=== PATIENT | female | born 1985 | race Caucasian/White ===

== ENCOUNTER 2022-09-15 10:24 | Emergency (ER) | payer MEDICAID ==
[~2022-09-15] VITALS: Ht 170.2 cm; Wt 58.0 kg
[2022-09-15] MEDS ORDERED: diphenhydrAMINE 50 mg/ml inj IM ONE (10:40)
[2022-09-15] MEDS ORDERED: LORazepam 2 mg/ml vial IM ONE (10:40)
[2022-09-15] MEDS ORDERED: haloperidol lactate 5mg/ml inj IM ONE (11:12)
--- NOTE | 2022-09-15 11:29 | NUR ---
Patient refused to allow staff to obtain vital signs.
--- NOTE | 2022-09-15 11:55 | NUR ---
Bilateral legs released from restraints
--- NOTE | 2022-09-15 12:10 | NUR ---
Pt's right arm is no longer restrained
--- NOTE | 2022-09-15 12:25 | NUR ---
Pt is no longer restrained
[2022-09-15 13:11] LABS: BASOPHILS # (AUTO) 0.1 X10'3 (0-0.2); BASOPHILS % (AUTO) 1.4 % (0-1); EOSINOPHILS # (AUTO) 0.1 X10'3 (0-0.9); EOSINOPHILS % (AUTO) 1.4 % (0-6); HEMATOCRIT 37.5 % (35.0-45.0); HEMOGLOBIN 12.4 g/dl (12.0-16.0); LYMPHOCYTES # (AUTO) 1.1 X10'3 (1.1-4.8); LYMPHOCYTES % (AUTO) 20.8 % (21-51); MEAN CORPUSCULAR HEMOGLOBIN 30.2 PG (27.0-31.0); MEAN CORPUSCULAR HGB CONC 33.1 g/dL (33.0-36.5); MEAN CORPUSCULAR VOLUME 91.4 FL (78-98); MONOCYTES # (AUTO) 0.6 X10'3 (0-0.9); MONOCYTES % (AUTO) 10.5 % (2-12); NEUTROPHILS # (AUTO) 3.6 X10'3 (1.8-7.7); NEUTROPHILS % (AUTO) 65.9 % (42-75); PLATELET COUNT 256 X10'3 (140-440); RED CELL DISTRIBUTION WIDTH 14.6 % (11.5-14.5); WHITE BLOOD COUNT 5.4 X10'3 (4.5-11.0)
[2022-09-15 13:30] LABS: ALANINE AMINOTRANSFERASE 22 U/L (12-78); ALBUMIN 3.8 G/DL (3.4-5.0); ALBUMIN/GLOBULIN RATIO 1.2 (1.1-1.5); ALKALINE PHOSPHATASE 75 IU/L (46-116); ANION GAP 11 (8-16); ASPARTATE AMINO TRANSFERASE 28 U/L (10-37); BILIRUBIN,TOTAL 0.6 MG/DL (0.1-1.0); BLOOD UREA NITROGEN 8 MG/DL (7-18); BUN/CREATININE RATIO 13.8 (6.6-38.0); CALCIUM 8.7 MG/DL (8.5-10.1); CHLORIDE 103 MMOL/L (99-107); CREATININE 0.58 MG/DL (0.40-0.90); ETHANOL < 0.010 GM/DL (0.0-0.010); GLUCOSE 89 MG/DL (70-104); SODIUM 138 MMOL/L (135-145); TOTAL CARBON DIOXIDE 24.3 MMOL/L (24-32); TOTAL PROTEIN 6.9 G/DL (6.4-8.2); eGFR > 90 ML/MIN
[2022-09-15 13:35] LABS: POTASSIUM 2.5 MMOL/L (3.5-5.1)
--- NOTE | 2022-09-15 14:00 | NUR ---
Pt changed in to green gowns.
[2022-09-15] MEDS ORDERED: potassium Cl 10 mEq/100mL bag IV ONE (14:10)
[2022-09-15] MEDS: potassium Cl 10 mEq/100mL bag IV SCH ×2 (14:15→14:57)
[2022-09-15] MEDS ORDERED: potassium Cl 20 mEq SR tablet PO STA (14:17)
--- NOTE | 2022-09-15 14:20 | NUR ---
Pt keeps removing her tele leads
[2022-09-15] MEDS ORDERED: POTASSIUM BICARB 20meq eff tab 20 MEQ TABLET.EFF PO ONE (14:35)
--- NOTE | 2022-09-15 15:04 | NUR ---
Pt removed her tele leads again and states she does not need them. Pt educated on the importances of tele leads but pt is uncooperative
[2022-09-16 02:19] LABS: GLUCOSE, URINE NEGATIVE (Neg); KETONES,URINE 40 mg/dl (Neg); LEUKOCYTE ESTERASE ,URINE NEGATIVE (Neg); NITRITES, URINE NEGATIVE (Neg); OCCULT BLOOD,URINE NEGATIVE (Neg); PROTEIN,URINE TRACE mg/dl (Neg)
[2022-09-16 02:20] LABS: COLOR,URINE DARK YELLOW (Yellow); UA COLLECTION TYPE CLN CATCH MIDSTREAM; URINE HCG NEGATIVE (NEG)
[2022-09-16 02:27] LABS: BACTERIA,URINE FEW /HPF (Neg); CLARITY,URINE SLIGHTLY CLOUDY (Clear); MUCUS STRANDS FEW /LPF (Neg); RBC,URINE 0-2 /HPF (0-2); SQUAMOUS EPITHELIAL CELL,UR MANY /LPF (FEW); WBC,URINE 0-4 /HPF (0-4)
[2022-09-16 02:33] LABS: URINE AMPHETAMINE SCREEN NEGATIVE (Neg); URINE BARBITUATE SCREEN NEGATIVE (Neg); URINE BENZODIAZEPINES SCREEN NEGATIVE (Neg); URINE CANNABINOID SCREEN POSITIVE (Neg); URINE COCAINE SCREEN NEGATIVE (Neg); URINE METHADONE SCREEN NEGATIVE (Neg); URINE OPIATE SCREEN NEGATIVE (Neg); URINE PHENCYCLIDINE SCREEN NEGATIVE (Neg)
--- NOTE | 2022-09-16 03:23 | NUR ---
PT AWOKE AND REQUESTED SOME SNACKS AND ASKED IF HER GLASSES ARE HERE. WHILE LOOKING IN BELONGING BAG FOR GLASSES PT APPROACHED THE TECH AND STATED SHE WANTED TO LEAVE . PT MADE HER WAY TO THE DOOR TECH CALLED SECURITY. PT ESCORTED BACK TO BED WITH NO COMPLICATIONS. PT NOW IN BED UNDER COVERS TALKING TO HERSELF.
[2022-09-16 05:22] VITALS: BP_DIAS 72
--- NOTE | 2022-09-16 06:25 | NUR ---
Patient screaming from her bed and demanding a doctor and coffee. Screaming "I not shutting up until I see my babies!". Then patient takes her blanket and walks behind the nurses station and walks to bed 20 and throws her dirty blanket on the patient and walks back to her bed. RN called Security and patient laying in bed. Security spoke to patient. Patient is now quiet in bed. Continue to monitor.
--- NOTE | 2022-09-16 07:10 | NUR ---
Patient upset and appears disorganized. Patient eventually calmed down. Continue to monitor.
[2022-09-16] MEDS ORDERED: OLAN5TAB5 PO (07:27)
[2022-09-16] MEDS ORDERED: DIVA500T9 PO (07:27)
[2022-09-16] MEDS ORDERED: SERT50TA PO (07:27)
--- NOTE | 2022-09-16 08:03 | NUR ---
Patient eating breakfast and drinking coffee. No distress observed. Continue to monitor.
[2022-09-16] MEDS: divalproex sod 250mg ER (24-hour) tablet PO SCH ×2 (08:55→19:43)
[2022-09-16] MEDS: OLANZapine 5mg rapidly disint. tablet PO SCH ×2 (08:55→19:43)
[2022-09-16] MEDS: sertraline 50mg tablet PO SCH (08:55)
--- NOTE | 2022-09-16 09:55 | NUR ---
Patient sleeping. No distress observed. Continue to monitor.
--- NOTE | 2022-09-16 11:10 | NUR ---
Rhonda YATES, evaluating patient. Continue to monitor.
--- NOTE | 2022-09-16 12:17 | NUR ---
Patient's lunch tray at bedside. Patient sleeping and awoken for lunch, but patient does not appear to be interested in eating. No distress observed. Continue to monitor.
--- NOTE | 2022-09-16 14:17 | NUR ---
Patient was placed on a 5150 and patient got upset but calmed down quickly. Continue to monitor.
[2022-09-16] MEDS ORDERED: potassium Cl 20 mEq SR tablet PO STA (16:17)
[2022-09-16] MEDS ORDERED: POTASSIUM BICARB 20meq eff tab 20 MEQ TABLET.EFF PO SCH (16:40)
--- NOTE | 2022-09-16 16:42 | NUR ---
RN attempted to give patient K+Cl-. Patient kept putting the med in her mouth then spitting it back out stating this is not potassium. RN changing to effervescent.
[2022-09-16] MEDS ORDERED: potassium Cl 20 mEq SR tablet PO ONE (17:20)
--- NOTE | 2022-09-16 18:10 | NUR ---
Dad [phone], Yared [phone].
--- NOTE | 2022-09-16 19:27 | NUR ---
Attempted one to one with patient to discuss K level and that she would be getting K replacement this evening. She was unable to verbalize that she understood. She was irritable and disorganized. She is labile. She appears to be responding to internal stimuli and is freuqently talking to herself. She appears disheveled.
[2022-09-16] MEDS: POTASSIUM BICARB 20meq eff tab 20 MEQ TABLET.EFF PO SCH (19:43)
--- NOTE | 2022-09-16 20:43 | NUR ---
The patient continues to be disorganized. Has difficulty processesing information. She did take all of her evening medications
--- NOTE | 2022-09-16 22:05 | NUR ---
The patient appears to be sleeping
--- NOTE | 2022-09-17 00:27 | NUR ---
The patient is awake, disorganized and talking quietly nonstop to herself
[2022-09-17] MEDS ORDERED: acetaminophen 325mg tablet PO ONE (01:05)
[2022-09-17] MEDS ORDERED: OLANZapine 2.5MG tablet PO ONE (01:05)
[2022-09-17] MEDS ORDERED: LORazepam 1 MG tablet PO ONE (01:05)
--- NOTE | 2022-09-17 01:05 | NUR ---
The patient is complaining of a headache and unable to sleep. She has been talking to herself and is disorganized. Dr. Arnett made aware and orders received.
--- NOTE | 2022-09-17 01:56 | NUR ---
The patient appears to be sleeping
--- NOTE | 2022-09-17 04:07 | NUR ---
The patient appears to be sleeping
--- NOTE | 2022-09-17 05:22 | NUR ---
The patient has slept very poorly during the night. Mood continues to be irritable at times. She has been up at the station and intrusive with staff. She is disorganized in her speech. She is accepting redirection but at times with difficulty
[2022-09-17] MEDS: OLANZapine 5mg rapidly disint. tablet PO SCH (08:10)
[2022-09-17] MEDS: divalproex sod 250mg ER (24-hour) tablet PO SCH (08:10)
[2022-09-17] MEDS: sertraline 50mg tablet PO SCH (08:10)
[2022-09-17] MEDS: POTASSIUM BICARB 20meq eff tab 20 MEQ TABLET.EFF PO SCH (08:10)
--- NOTE | 2022-09-17 10:20 | NUR ---
Netta Nunez accepted pt and will pick patient up at 11:15 TO 11:30. ACCEPTED BY [facility] [phone]
== END 2022-09-17 11:32 ==
LOC: ER 10:25
DX: E87.6 Hypokalemia (principal); Z20.822 Contact with and (suspected) exposure to COVID-19; F29 Unspecified psychosis not due to a substance or known physiological condition; F31.9 Bipolar disorder, unspecified
CPT/HCPCS: 36415; 80053; 80305; 80320; 81001; 81025; 84132; 84443; 85025; 87811; 96372; 99291; J1200; J1630; J2060; J7030; 99285

== ENCOUNTER 2022-10-13 13:44 | Emergency (ER) | payer MEDICAID ==
[~2022-10-13] VITALS: Ht 175.3 cm; Wt 61.4 kg
[~2022-10-13 13:44] MED LIST: DIVA500T9 PO; OLAN5TAB5 PO; SERT50TA PO
[2022-10-13 14:41] VITALS: BP 107/71
--- NOTE | 2022-10-13 15:19 | NUR ---
at bedside. pt denies s\i or h\i
[2022-10-13 15:59] LABS: CLARITY,URINE CLEAR (Clear); COLOR,URINE YELLOW (Yellow); GLUCOSE, URINE NEGATIVE (Neg); KETONES,URINE TRACE mg/dl (Neg); LEUKOCYTE ESTERASE ,URINE NEGATIVE (Neg); NITRITES, URINE NEGATIVE (Neg); OCCULT BLOOD,URINE NEGATIVE (Neg); PROTEIN,URINE NEGATIVE (Neg); UROBILINOGEN,URINE 0.2 E.U/dL (0.2-1.0)
[2022-10-13 16:02] LABS: UA COLLECTION TYPE CLN CATCH MIDSTREAM
[2022-10-13] MEDS ORDERED: LORA-269 PO (16:55)
== END 2022-10-13 17:12 | disposition home or self-care (01) ==
LOC: ER 13:44
DX: F30.9 Manic episode, unspecified (principal); F31.9 Bipolar disorder, unspecified; F17.200 Nicotine dependence, unspecified, uncomplicated; F12.10 Cannabis abuse, uncomplicated; Z79.899 Other long term (current) drug therapy
CPT/HCPCS: 81003; 99283

== ENCOUNTER 2022-11-23 18:49 | Emergency (ER) | payer MEDICAID ==
[~2022-11-23] VITALS: Ht 175.3 cm; Wt 61.4 kg
[~2022-11-23 18:49] MED LIST changes: +LORA-269 PO
[2022-11-23 18:56] VITALS: BP 117/75
== END 2022-11-24 01:03 | disposition left against medical advice (07) ==
LOC: ER 18:50
DX: Z00.8 Encounter for other general examination (principal); Z53.21 Procedure and treatment not carried out due to patient leaving prior to being seen by health care provider

== ENCOUNTER 2022-11-24 19:10 | Emergency (ER) | payer MEDICAID ==
[~2022-11-24] VITALS: Ht 175.3 cm; Wt 65.9 kg
[2022-11-24 19:41] VITALS: BP 118/71
[2022-11-24 20:07] LABS: BASOPHILS % (AUTO) 0.6 % (0-1); EOSINOPHILS # (AUTO) 0.1 X10'3 (0-0.9); EOSINOPHILS % (AUTO) 1.9 % (0-6); HEMATOCRIT 43.2 % (35.0-45.0); HEMOGLOBIN 14.7 g/dl (12.0-16.0); LYMPHOCYTES # (AUTO) 1.7 X10'3 (1.1-4.8); LYMPHOCYTES % (AUTO) 22.8 % (21-51); MEAN CORPUSCULAR HEMOGLOBIN 30.9 PG (27.0-31.0); MEAN CORPUSCULAR VOLUME 90.8 FL (78-98); MONOCYTES # (AUTO) 0.6 X10'3 (0-0.9); MONOCYTES % (AUTO) 8.2 % (2-12); NEUTROPHILS # (AUTO) 4.9 X10'3 (1.8-7.7); NEUTROPHILS % (AUTO) 66.5 % (42-75); PLATELET COUNT 315 X10'3 (140-440); RED BLOOD COUNT 4.76 X10'6 (4.20-5.60); RED CELL DISTRIBUTION WIDTH 16.2 % (11.5-14.5); WHITE BLOOD COUNT 7.3 X10'3 (4.5-11.0)
[2022-11-24 20:27] LABS: ALANINE AMINOTRANSFERASE 39 U/L (12-78); ALBUMIN 4.4 G/DL (3.4-5.0); ALBUMIN/GLOBULIN RATIO 1.2 (1.1-1.5); ALKALINE PHOSPHATASE 167 IU/L (46-116); ANION GAP 11 (8-16); ASPARTATE AMINO TRANSFERASE 22 U/L (10-37); BILIRUBIN,TOTAL 0.6 MG/DL (0.1-1.0); BLOOD UREA NITROGEN 7 MG/DL (7-18); BUN/CREATININE RATIO 9.1 (6.6-38.0); CALCIUM 9.7 MG/DL (8.5-10.1); CHLORIDE 103 MMOL/L (99-107); CREATININE 0.77 MG/DL (0.40-0.90); GLUCOSE 123 MG/DL (70-104); POTASSIUM 3.5 MMOL/L (3.5-5.1); SODIUM 138 MMOL/L (135-145); TOTAL CARBON DIOXIDE 23.6 MMOL/L (24-32); TOTAL PROTEIN 8.1 G/DL (6.4-8.2); eGFR 84 ML/MIN
== END 2022-11-25 01:28 | disposition left against medical advice (07) ==
LOC: ER 19:11
DX: Z04.6 Encounter for general psychiatric examination, requested by authority (principal); Z53.21 Procedure and treatment not carried out due to patient leaving prior to being seen by health care provider
CPT/HCPCS: 36415; 80053; 84443; 85025